=== PATIENT | male | born 1965 | race Caucasian/White ===

== ENCOUNTER 2018-04-25 11:53 | Emergency (ER) | payer MEDICAID ==
[~2018-04-25] VITALS: Ht 172.7 cm; Wt 65.5 kg
[2018-04-25 12:26] VITALS: BP 129/82
[2018-04-25] MEDS ORDERED: ACETAMINOPHEN 500 MG TABLET ONE (13:21)
[2018-04-25] MEDS ORDERED: ACETAMINOPHEN 500 MG TABLET PO ONE (13:30)
--- NOTE | 2018-04-25 14:09 | NUR ---
SLING APPLIED BY GINA BRUNO
== END 2018-04-25 14:11 | disposition home or self-care (01) ==
LOC: ED 14:05
DX: S46.012A Strain of muscle(s) and tendon(s) of the rotator cuff of left shoulder, initial encounter (principal); W01.0XXA Fall on same level from slipping, tripping and stumbling without subsequent striking against object, initial encounter; Y93.89 Activity, other specified; Y92.410 Unspecified street and highway as the place of occurrence of the external cause; Y99.8 Other external cause status
CPT/HCPCS: 99283